=== PATIENT | female | born 1980 | race Caucasian/White ===

== ENCOUNTER 2019-10-26 08:32 | Inpatient (IN) | payer MEDICAID ==
[~2019-10-26 08:32] MED LIST: Acetaminophen 500 MG Tab PO ONE; Celecoxib 200 MG Cap PO ONE; Gabapentin 300 MG Cap PO ONE; Ketamine 50 MG in Sodium Chloride 0.9% 49.5 ML IV SCH; Ketamine 500 MG/5 ML MDV IV SCH; Magnesium Sulfate 3.6 GM in Sodium Chloride 0.9% 100 ML IV SCH; Magnesium Sulfate 5.7 GM in Sodium Chloride 0.9% 250 ML IV ONE; Scopolamine 1.5 MG Transdermal Patch TOP SCH
[2019-10-26] MEDS ORDERED: Dextrose 5%-Lactated Ringers 1,000 ML IV SCH (09:00)
[2019-10-26] MEDS ORDERED: cefOXitin 2 GM in Sodium Chloride 0.9% 50 ML IV ONE (09:00)
[2019-10-26] MEDS ORDERED: Propofol 200 MG/20 ML SDV ONE (09:25)
[2019-10-26] MEDS ORDERED: Neostigmine Methylsulfate 1 MG/ML 5 ML Syringe ONE (09:25)
[2019-10-26] MEDS ORDERED: Dexamethasone 4 MG/ML SDV ONE (09:25)
[2019-10-26] MEDS ORDERED: Succinylcholine 200 MG/10 ML MDV ONE (09:25)
[2019-10-26] MEDS ORDERED: Glycopyrrolate 0.2 MG/ML 5 ML MDV ONE (09:25)
[2019-10-26] MEDS ORDERED: Rocuronium 50 MG/5 ML Vial ONE (09:25)
[2019-10-26] MEDS ORDERED: Ondansetron 4 MG/2 ML SDV ONE (09:25)
[2019-10-26] MEDS ORDERED: fentaNYL 250 MCG/5 ML SDV ONE ×2 (09:25→11:01)
[2019-10-26] MEDS ORDERED: Lactated Ringers 1,000 ML ONE (09:57)
[2019-10-26] MEDS ORDERED: cefOXitin 2 GM Vial ONE (10:26)
[2019-10-26] MEDS ORDERED: Calcium Gluconate 10% 1 GM/10 ML SDV IVPUSH PRN (13:51)
[2019-10-26] MEDS ORDERED: Metoclopramide 10 MG/2 ML SDV IVPUSH PRN (13:51)
[2019-10-26] MEDS ORDERED: diphenhydrAMINE 50 MG/ML SDV IVPUSH PRN (13:51)
[2019-10-26] MEDS ORDERED: Cyclobenzaprine 10 MG Tab PO PRN (13:51)
[2019-10-26] MEDS ORDERED: hydrOXYzine HCL 100 MG/2 ML SDV IM PRN (13:51)
[2019-10-26] MEDS ORDERED: Labetalol 20 MG/4 ML Syringe IVPUSH PRN (13:51)
[2019-10-26] MEDS ORDERED: Acetaminophen 500 MG Tab PO SCH (14:00)
[2019-10-26] MEDS: Acetaminophen 500 MG Tab PO PRN ×2 (14:05→21:06)
[2019-10-26] MEDS: oxyCODONE 5 MG Tab PO PRN (14:05)
[2019-10-26] MEDS: Ondansetron 4 MG/2 ML SDV IVPUSH PRN ×2 (14:11→17:36)
[2019-10-26] MEDS: HYDROmorphone 0.5 MG/0.5 ML Syringe IVPUSH PRN ×2 (14:12→14:19)
[2019-10-26] MEDS: Dextrose 5%-Lactated Ringers 1,000 ML IV SCH ×2 (14:23→22:26)
[2019-10-26] MEDS: Gabapentin 250 MG/5 ML Solution ML 470 ML Bottle PO SCH ×2 (14:46→22:19)
[2019-10-26] MEDS: Pantoprazole 40 MG Vial IVPUSH SCH (15:59)
[2019-10-26] MEDS: Heparin Sodium 5,000 Units/ML Vial SUBCUT SCH (15:59)
[2019-10-26] MEDS ORDERED: MVI, Adult with Vitamin K 10 ML, Thiamine 200 MG, Chromium/Copper/Mang/Selen/Zn 1 ML in... IV SCH ×4 (16:00)
[2019-10-26] MEDS: cefOXitin 2 GM in Sodium Chloride 0.9% 50 ML IV SCH ×2 (16:00→22:19)
[2019-10-26] MEDS: Acetaminophen 500 MG Tab PO SCH (17:36)
[2019-10-26] MEDS: HYDROmorphone 1 MG/ML Syringe IV PRN ×2 (18:13→22:27)
[2019-10-27] MEDS: Acetaminophen 500 MG Tab PO SCH ×3 (00:24→16:23)
[2019-10-27] MEDS: HYDROmorphone 1 MG/ML Syringe IV PRN ×2 (02:20→05:08)
[2019-10-27] MEDS: Dextrose 5%-Lactated Ringers 1,000 ML IV SCH (04:00)
[2019-10-27] MEDS ORDERED: Iopamidol 510 MG/ML 50 ML SDV PO ONE (04:21)
[2019-10-27] MEDS: cefOXitin 2 GM in Sodium Chloride 0.9% 50 ML IV SCH ×2 (04:53→09:59)
[2019-10-27] MEDS: Heparin Sodium 5,000 Units/ML Vial SUBCUT SCH ×2 (04:55→16:08)
[2019-10-27] MEDS ORDERED: Dextrose 5%-Lactated Ringers 1,000 ML IV SCH (08:00)
[2019-10-27] MEDS: Gabapentin 250 MG/5 ML Solution ML 470 ML Bottle PO SCH ×3 (10:00→20:43)
[2019-10-27] MEDS: Celecoxib 200 MG Cap PO SCH ×2 (10:01→20:43)
[2019-10-27] MEDS: SCOPOLAMINE PATCH CHECK TOP SCH (10:02)
[2019-10-27] MEDS ORDERED: MVI, Adult with Vitamin K 10 ML, Thiamine 200 MG, Chromium/Copper/Mang/Selen/Zn 1 ML in... IV SCH ×4 (16:00)
[2019-10-27] MEDS: Pantoprazole 40 MG Vial IVPUSH SCH (16:08)
[2019-10-28] MEDS: Acetaminophen 500 MG Tab PO SCH ×2 (01:39→08:55)
[2019-10-28] MEDS: Heparin Sodium 5,000 Units/ML Vial SUBCUT SCH (04:48)
[2019-10-28] MEDS: oxyCODONE 5 MG Tab PO PRN (04:48)
[2019-10-28] MEDS: Celecoxib 200 MG Cap PO SCH (08:55)
[2019-10-28] MEDS: SCOPOLAMINE PATCH CHECK TOP SCH (08:55)
[2019-10-28] MEDS: Gabapentin 250 MG/5 ML Solution ML 470 ML Bottle PO SCH (08:55)
[2019-10-28] MEDS ORDERED: Cyanocobalamin (Vitamin B12) 1,000 MCG/ML SDV IM ONE (09:00)
--- NOTE | 2019-10-28 15:50 | DISCH ---
FINAL DIAGNOSES: 1. Morbid obesity. 2. Marked hepatomegaly. 3. Paraesophageal diaphragmatic hernia. 4. Peritoneal nodule over mid body of lesser curvature of the stomach. OPERATIVE PROCEDURES: Done on 10/26/2019; diagnostic laparoscopy with, 1. Laparoscopic sleeve gastrectomy. 2. Needle liver biopsy. 3. Repair of paraesophageal diaphragmatic hernia with mesh. 4. Excision of peritoneal nodule overlying lesser curvature of the stomach. HOSPITAL COURSE: This is a 39-year-old female presenting with longstanding morbid obesity and increasingly significant comorbidities. After preoperative evaluation and discussion, she wished to proceed with a sleeve gastrectomy. This was done on the date of admission with the above procedures being done concurrently. She did have quite severe reflux disease preoperatively, so a posterior crural repair augmented with mesh was undertaken and appeared to create a nice angulation of the esophagogastric junction. She also had a 3 mm peritoneal nodule on the surface of the mid lesser curvature of the stomach, which was removed and sent for histologic evaluation. This likely will be something innocuous. Otherwise, the patient is tolerating a step-2 diet. She will be discharged home, taking Tylenol and Celebrex p.r.n., and also given prescription for oxycodone 5 mg p.o. q.6 hours p.r.n. pain, #20. She will be instructed to hold off on her iron and other vitamin supplements until after her first appointment, which will be with Lesa Avalos PA-C, at [facility] on 11/05/2019.
--- NOTE | 2019-10-28 15:50 | PN ---
DATE OF SERVICE: 10/27/2019 The patient is postoperative day #1 from laparoscopic sleeve gastrectomy along with repair of paraesophageal hernia with mesh. Clinically, she is doing well. Has some upper abdominal, lower chest discomfort as expected. Upper GI x-ray looks good. We will switch her over to exclusively oral pain medication today and go to a step-2 diet. She may be ready for discharge home tomorrow. Enrique Garcia MD /[id number]
--- NOTE | 2019-10-29 09:23 | CR ---
[facility] HISTORY: Postbariatric surgery FINDINGS: Patient swallowed water-soluble contrast. Upright views of the abdomen show no evidence of extravasation or obstruction. There is a surgical drain in the left upper quadrant. IMPRESSION: Status post bariatric surgery No extravasation or obstruction seen
--- NOTE | 2019-11-06 14:39 | OR ---
DATE OF PROCEDURE: 10/26/2019 SURGEON: Enrique Garcia MD PREOPERATIVE DIAGNOSIS: Morbid obesity. POSTOPERATIVE DIAGNOSES: 1. Morbid obesity. 2. Marked hepatomegaly. 3. Paraesophageal diaphragmatic hernia. 4. Peritoneal nodule over midbody of lesser curvature of the stomach. OPERATIVE PROCEDURES: Diagnostic laparoscopy with, 1. Laparoscopic sleeve gastrectomy (10386). 2. Vu-Cut needle liver biopsy (92862). 3. Repair of paraesophageal diaphragmatic hernia with mesh (91522). 4. Excision of peritoneal nodule over midportion of gastric lesser curvature (22832). ANESTHESIA: General. LOCAL COORDINATOR: Lesa Avalos PA-C INDICATIONS FOR PROCEDURE: This is a 39-year-old female, presenting with longstanding morbid obesity and increasingly significant comorbidities. After preoperative evaluation and discussion, she wished to proceed with a sleeve gastrectomy. Potential risks of the procedure including bleeding, infection, leak from the sleeve gastrectomy staple line, as well as the possibility of cardiopulmonary, septic, or hemorrhagic complications leading to were discussed, and the patient wishes to proceed. DETAILS OF PROCEDURE: The patient was taken to the operating room and placed in a supine position. After general endotracheal anesthesia was induced, she was converted to a lithotomy position, and the abdomen was prepped and draped. 15 cm inferior and 5 cm left of the xiphoid process, a transverse incision was made, and the peritoneal cavity entered under direct vision with an Optiview trocar. The peritoneal cavity was inflated to 15 mmHg with CO2. Laparoscope was reinserted and no underlying trocar insertion site injuries were seen. Following this, 5 additional trocars were placed across the upper and mid-abdomen and bilateral transversus abdominis plane blocks were placed. The patient was noted to have marked hepatomegaly with liver being grossly fatty infiltrated and quite enlarged. Vu-Cut needle biopsy was obtained from left lobe of liver. Minimal bleeding from the biopsy site was controlled with electrocautery. At this point, the patient was noted to have a moderate-sized paraesophageal diaphragmatic hernia. This contained prolapse of some perigastric fat and gastric fundus, along with a thin tongue of omentum and it coursed anterior to the esophagus. This was reduced. The peritoneum overlying was incised and reflected downward. The peritoneum between the right and left crura and esophagus was then divided for a few centimeters inferior to that level, and the esophagus was freed up from the crura on each side and then retrocrural window established. The soft tissues attached to the esophagus were then divided with Harmonic scalpel to a point where roughly 4 to 5 cm intraabdominal esophageal length was obtained. Crural repair was then accomplished posteriorly with some 0 Ethibond sutures, reinforced with PTFE pledgets. Due to the relative thinness of the musculature, the crural repair was reinforced with a Phasix ST mesh. This was cut in a horseshoe-type configuration and laid across the crural repair and then affixed to the crura on each side with some titanium tacking screws. At this point, the midbody of the greater curvature of the stomach was from the omentum with Harmonic scalpel. This dissection then continued proximally up to and through the short gastric vessels including the highest and posterior short gastric vessels. The left baltazar was then dissected free from the stomach so that was well freed up to avoid a large cul-de-sac of stomach being left in that location. The dissection then continued dividing the omentum in the distal direction to a point 2 cm proximal to the pylorus. At this point, the patient was noted to have roughly a 3 mm peritoneal nodule over the midportion of the lesser curvature of the stomach of uncertain histologic nature, and this was then excised with the aid of some electrocautery and it was then sent as a separate specimen. The initial staple line direction was then marked out with electrocautery, beginning 2 cm proximal to the pylorus and extending underneath the incisura angularis with care taken to avoid overtightening of that area. The first 2 firings of the MICHAEL fidencio were with non- reinforced black loads. At that point, then a 32-Qatari suction tube was placed orally through the esophagogastric junction and into the stomach, positioned along lesser curvature of the stomach. This was then pulled up against the lesser curvature, where suction was applied, and the remainder of the sleeve gastrectomy was then constructed with that being used as a template with a combination of reinforced black and reinforced purple loads. Upon completion of the staple line, there appeared to be intact staple line on the remaining gastric side of the sleeve gastrectomy. Fibrin sealant was then applied to the area around the esophagogastric junction to a fairly significant extent and then omentum tacked up into that area as well and then to a lesser extent along the remainder of the staple line. The 32-Qatari tube was then removed, and a balloon-type tube was then placed per Anesthesia into the midbody of the stomach, where with the duodenum being compressed, air was injected to a point there was a tense distention of the remaining stomach wall, was submerged with an antibiotic-containing saline solution. No leaks or bleeding were seen. At that point, the catheter was removed. The gastric specimen was then delivered through the left lateral trocar site with no further problems noted. A single Wicho-Zavala drain was then placed through the left lateral trocar site and positioned up against the area of the esophagogastric junction and from there into the splenic fossa. The trocars were then sequentially removed and peritoneal cavity deflated. Incisions were closed with 4-0 Vicryl skin stitch and drains fixed with some 4-0 Vicryl stitch as well. Dressing was applied. The patient was taken to the recovery room in satisfactory condition. Physician restaurant assistant manager, Lesa Avalos, played an essential role in assisting in this case, helping to position the patient, retract structures as needed, as well as suturing and cutting sutures when indicated. Her presence improved patient safety and decreased the operative time. Enrique Garcia MD /[id number]
== END 2019-10-28 10:46 | disposition home or self-care (01) | DRG 621 ==
LOC: JP.SDS 08:32 → EDSTATUS 10:15 → JP.SDSSCHI 10:15 → JP.MS 13:00
PROVIDERS: ADMIT Surgery; ATTEND Surgery
PROC: 0DB64Z3 Excision of Stomach, Percutaneous Endoscopic Approach, Vertical (ICD-10-PCS; principal; 2019-10-26)
PROC: 0FB24ZX Excision of Left Lobe Liver, Percutaneous Endoscopic Approach, Diagnostic (ICD-10-PCS; principal; 2019-10-26)
PROC: 0DBW4ZZ Excision of Peritoneum, Percutaneous Endoscopic Approach (ICD-10-PCS; principal; 2019-10-26)
PROC: 0BUT4JZ Supplement Diaphragm with Synthetic Substitute, Percutaneous Endoscopic Approach (ICD-10-PCS; principal; 2019-10-26)
DX: E66.01 Morbid (severe) obesity due to excess calories (principal); R16.0 Hepatomegaly, not elsewhere classified; K44.9 Diaphragmatic hernia without obstruction or gangrene; R19.09 Other intra-abdominal and pelvic swelling, mass and lump; Z68.42 Body mass index [BMI] 45.0-49.9, adult; Z90.49 Acquired absence of other specified parts of digestive tract; Z98.51 Tubal ligation status
CPT/HCPCS: 36415; 74240; 74240-26; 80053; 81025; 85027; 86850; 86900; 86901; 88305; 88307; 88313; 88341; 88342; 93005; A9270-GY; C1713; C1781; C9113; J0171; J0330; J0694; J1100; J1170; J1644; J2405; J2704; J2710; J2765; J2795; J3010; J3411; J3420; J3475; J3490; J7050; J7120; J7121; Q9966